=== PATIENT | female | born 1955 | race Caucasian/White ===

== ENCOUNTER → 2016-08-30 | Outpatient (REF) | payer OTHER ==
[~2016-08-30] MED LIST: ALBU17IN INH; ARIC10TA PO; ATOR1TAB21 PO; BENZ100C5 PO; BREO1INH IN; DONETAB6 PO; GABA600T PO; HYDR1TAB97 PO; HYDR25T PO; HYDR25TAB PO; INCR1INH IN; LOSA100T36 PO; MOBI15TA PO; OMEP40CA2 PO; SPIR1CAP INH; SUCR1SUS PO; SYMB16INH INH; TIOT18INH INH; TOPI1CAP PO; TOPI200T4 PO; TRAM50TA2 PO; TRAZ50TA4 PO
[2016-08-30 20:29] LABS: MEAN CORPUSCULAR HEMOGLOBIN 32.1 pg (27.0-33.0); MEAN CORPUSCULAR HGB CONC 33.2 g/dl (32.0-36.5); MEAN CORPUSCULAR VOLUME 96.7 fl (80.0-96.0); RED CELL DISTRIBUTION WIDTH 12.5 % (11.5-14.5); WHITE BLOOD COUNT 6.8 K/mm3 (4.0-10.0)
[2016-08-30 20:37] LABS: ALBUMIN/GLOBULIN RATIO 1.14 (1.00-1.93); ALKALINE PHOSPHATASE 94 U/L (45-117); ALT/SGPT 13 U/L (12-78); ANION GAP 9 MEQ/L (8-16); AST/SGOT 11 U/L (15-37); BILIRUBIN,TOTAL 0.4 MG/DL (0.2-1.0); BLOOD UREA NITROGEN 14 MG/DL (7-18); CALCIUM LEVEL 9.1 MG/DL (8.8-10.2); CARBON DIOXIDE LEVEL 26 MEQ/L (21-32); CHLORIDE LEVEL 108 MEQ/L (98-107); CHOLESTEROL LEVEL 200 MG/DL (<200); CREATININE FOR GFR 0.88 MG/DL (0.55-1.02); GLOMERULAR FILTRATION RATE > 60.0 (>45); GLUCOSE, FASTING 84 MG/DL (80-110); POTASSIUM SERUM 4.1 MEQ/L (3.5-5.1); SODIUM LEVEL 143 MEQ/L (136-145); TOTAL PROTEIN 7.5 GM/DL (6.4-8.2); TRIGLYCERIDES LEVEL 200 MG/DL (<150)
== END | disposition home or self-care (01) ==
LOC: M SFHCLERA 15:36
PROVIDERS: ATTEND Physician Assistant
DX: I10 Essential (primary) hypertension (principal); E78.2 Mixed hyperlipidemia

== ENCOUNTER → 2016-11-26 | Outpatient (REF) | payer OTHER ==
[~2016-11-26] MED LIST changes: +HYDR-3713 PO; -HYDR1TAB97 PO; -TOPI1CAP PO; +TOPI1CAP8 PO
[2016-11-26 12:37] LABS: ALBUMIN 3.5 GM/DL (3.2-5.2); ALBUMIN/GLOBULIN RATIO 0.97 (1.00-1.93); ALKALINE PHOSPHATASE 92 U/L (45-117); ALT/SGPT 14 U/L (12-78); ANION GAP 8 MEQ/L (8-16); AST/SGOT 12 U/L (15-37); BILIRUBIN,TOTAL 0.7 MG/DL (0.2-1.0); BLOOD UREA NITROGEN 15 MG/DL (7-18); CALCIUM LEVEL 9.1 MG/DL (8.8-10.2); CARBON DIOXIDE LEVEL 26 MEQ/L (21-32); CHLORIDE LEVEL 108 MEQ/L (98-107); CREATININE FOR GFR 0.81 MG/DL (0.55-1.02); FREE T4 1.06 NG/DL (0.76-1.46); GAMMA GLUTAMYLTRANSPEPTIDASE 35 U/L (5-55); GLOMERULAR FILTRATION RATE > 60.0 (>45); GLUCOSE, FASTING 90 MG/DL (80-110); POTASSIUM SERUM 3.6 MEQ/L (3.5-5.1); SODIUM LEVEL 142 MEQ/L (136-145); TOTAL PROTEIN 7.1 GM/DL (6.4-8.2)
[2016-11-26 12:53] LABS: MEAN CORPUSCULAR HEMOGLOBIN 32.6 pg (27.0-33.0); MEAN CORPUSCULAR HGB CONC 33.1 g/dl (32.0-36.5); MEAN CORPUSCULAR VOLUME 98.5 fl (80.0-96.0); RED CELL DISTRIBUTION WIDTH 13.4 % (11.5-14.5); WHITE BLOOD COUNT 10.4 K/mm3 (4.0-10.0)
== END ==
LOC: M SFHCLERA 08:24
PROVIDERS: ATTEND Physician Assistant
DX: L29.9 Pruritus, unspecified (principal)

== ENCOUNTER → 2016-11-26 | Outpatient (CLI) | payer OTHER ==
--- NOTE | 2016-11-26 10:10 | REP ---
CHEST, TWO VIEWS: COMPARISON: 11/11/2014. Moderate diffuse interstitial fibrosis is stable. There are emphysematous changes in the right upper lobe with thick focal scarring in the medial aspect of the right apex. A thick band of scarring is seen in the left upper lobe. Heart does not appear to be significantly enlarged. There is mild calcification of the thoracic aorta. There are mild degenerative changes of the spine. Metallic clips are seen in the right upper quadrant of the abdomen. IMPRESSION: Stable chronic fibrosis with no definite superimposed acute infiltrate. Signed by Brandt Garcia MD 11/26/2016 04:36 P
--- NOTE | 2016-11-26 14:15 | REP ---
RIGHT UPPER QUADRANT ULTRASOUND: Real-time sonographic evaluation of the right upper quadrant is performed. The patient has had a prior cholecystectomy. The common bile duct measures 10 mm maximally. No gross liver or pancreatic mass is seen. The pancreas is not optimally seen due to body habitus and bowel gas. The right kidney demonstrates no hydronephrosis with a length of 11.5 cm . There are two right renal cysts present measuring 3.1 x 3.8 x 2.7 cm and 1.8 x 2.3 x 2.3 cm. There is no free fluid. IMPRESSION: Status post cholecystectomy. The common bile duct 10 mm. Right renal cysts. Signed by Brandt Garcia MD 11/26/2016 04:40 P
== END ==
LOC: M LRY 08:28
PROVIDERS: ATTEND Physician Assistant
DX: L29.9 Pruritus, unspecified (principal); Z90.49 Acquired absence of other specified parts of digestive tract; N28.1 Cyst of kidney, acquired; J84.10 Pulmonary fibrosis, unspecified

== ENCOUNTER → 2017-01-28 | Outpatient (REF) | payer OTHER | LOC: M SFHCLERA 13:46 | PROVIDERS: ATTEND Physician Assistant | DX: R35.0 Frequency of micturition (principal) ==

== ENCOUNTER → 2024-03-19 | Outpatient (CLI) | payer MEDICARE, OTHER ==
[~2024-03-19] MED LIST changes: -ARIC10TA PO; +ARIC1TAB2 PO; +BENZ-18 PO; -BENZ100C5 PO; +DONE-1 PO; -DONETAB6 PO; -GABA600T PO; +GABA600T4 PO; +HYDR-2541 PO; +HYDR-3363 PO; -HYDR25T PO; -HYDR25TAB PO; -LOSA100T36 PO; +LOSA100T46 PO; -OMEP40CA2 PO; +OMEP40CA4 PO; +SUCR1ORA PO; -SUCR1SUS PO; -TOPI200T4 PO; +TOPI200T7 PO; +TRAZ-252 PO; -TRAZ50TA4 PO
== END ==
LOC: M RAD 14:43
PROVIDERS: ATTEND Nurse Practitioner Adult Health
DX: J44.9 Chronic obstructive pulmonary disease, unspecified (principal); R91.8 Other nonspecific abnormal finding of lung field

== ENCOUNTER → 2024-04-12 | Outpatient (CLI) | payer MEDICARE, MEDICAID ==
[~2024-04-12] MED LIST changes: +ALBU8.5H; +FLUT1BLS8; +GABA-284 PO
== END ==
LOC: M RAD 17:41
PROVIDERS: ATTEND Nurse Practitioner Adult Health
DX: R91.8 Other nonspecific abnormal finding of lung field (principal)

== ENCOUNTER → 2024-04-14 | Day surgery (SDC) | payer MEDICARE, MEDICAID ==
[~2024-04-14] VITALS: Ht 154.9 cm; Wt 59.5 kg
[~2024-04-14] MED LIST changes: +ATROPINE SULFATE 1% OPHTH SOLN 2ML BTL OS SCH; +BSS IRRIG/VANCO(10MG)/TOBRA(5MG)/EPINEPH(1:1000-0.5CC)500ML BAG-ORONLY As Ordered ONE; +CEFUROXIME 1MG/0.1ML INTRACAMERAL INJ As Ordered ONE; +CHLO125TA PO; +GABA-1490 PO; -GABA600T4 PO; +LIDOCAINE 1% SDV 5ML VIAL As Ordered ONE; +LIDOCAINE 3.5 % 1ML OPHTH TOPICAL GEL OU ONE; +MIDAZOLAM INJ 2MG/2ML VIAL As Ordered ONE; +OFLOXACIN 0.3 % (OCUFLOX) OPTH SOL 5ML OS ONE; +PHENYLEPHRINE 10% OPHTH SOL 5ML OS PRN; +PHENYLEPHRINE 2.5% OPHTH SOL 2ML OS SCH; +TROPICAMIDE 1% OPHTH SOLN 15ML OS SCH; +fentaNYL 100 MCG/2 ML INJECTION As Ordered ONE
[2024-04-14 11:33] VITALS: BP 148/79; TEMP 98.1; O2SAT 92
[2024-04-14] MEDS: ALBUTEROL SULFATE 2.5MG/0.5ML INH NEB SOLN NEB ONE (11:36)
== END | disposition home or self-care (01) ==
LOC: M SDC 10:55
PROVIDERS: ATTEND Ophthalmology
DX: H25.12 Age-related nuclear cataract, left eye (principal); R09.02 Hypoxemia; Z53.09 Procedure and treatment not carried out because of other contraindication; R60.0 Localized edema; J44.9 Chronic obstructive pulmonary disease, unspecified; R06.02 Shortness of breath; R91.8 Other nonspecific abnormal finding of lung field; F31.9 Bipolar disorder, unspecified; I10 Essential (primary) hypertension; M19.90 Unspecified osteoarthritis, unspecified site; M79.7 Fibromyalgia; K21.9 Gastro-esophageal reflux disease without esophagitis; E78.5 Hyperlipidemia, unspecified; Z88.0 Allergy status to penicillin; Z88.5 Allergy status to narcotic agent; Z88.8 Allergy status to other drugs, medicaments and biological substances; Z90.49 Acquired absence of other specified parts of digestive tract; Z90.89 Acquired absence of other organs; Z98.61 Coronary angioplasty status

== ENCOUNTER → 2024-05-11 | Outpatient (CLI) | payer MEDICARE, MEDICAID ==
[~2024-05-11] MED LIST changes: -ATROPINE SULFATE 1% OPHTH SOLN 2ML BTL OS SCH; -BSS IRRIG/VANCO(10MG)/TOBRA(5MG)/EPINEPH(1:1000-0.5CC)500ML BAG-ORONLY As Ordered ONE; -CEFUROXIME 1MG/0.1ML INTRACAMERAL INJ As Ordered ONE; -LIDOCAINE 1% SDV 5ML VIAL As Ordered ONE; -LIDOCAINE 3.5 % 1ML OPHTH TOPICAL GEL OU ONE; -MIDAZOLAM INJ 2MG/2ML VIAL As Ordered ONE; -OFLOXACIN 0.3 % (OCUFLOX) OPTH SOL 5ML OS ONE; -PHENYLEPHRINE 10% OPHTH SOL 5ML OS PRN; -PHENYLEPHRINE 2.5% OPHTH SOL 2ML OS SCH; -TROPICAMIDE 1% OPHTH SOLN 15ML OS SCH; -fentaNYL 100 MCG/2 ML INJECTION As Ordered ONE
== END ==
LOC: M PLARAD 11:51
PROVIDERS: ATTEND Internal Medicine Critical Care Medicine
DX: R91.8 Other nonspecific abnormal finding of lung field (principal)
CPT/HCPCS: 78815; A9552

== ENCOUNTER → 2024-05-25 | Outpatient (REF) | payer MEDICARE, MEDICAID ==
[2024-05-25 17:28] LABS: PLATELET COUNT, AUTOMATED 222 10^3/uL (150-450)
[2024-05-25 17:57] LABS: ALBUMIN 3.2 G/DL (3.2-5.2); ALKALINE PHOSPHATASE 74 U/L (46-116); ALT/SGPT 13 U/L (7.0-40); AST/SGOT 14 U/L (<34); BILIRUBIN,TOTAL 0.3 MG/DL (0.3-1.2); BLOOD UREA NITROGEN 7 MG/DL (9-23); CALCIUM LEVEL 9.3 MG/DL (8.3-10.6); CARBON DIOXIDE LEVEL 33 MMOL/L (20-31); CHLORIDE LEVEL 104 MMOL/L (98-107); CREATININE FOR GFR 0.72 MG/DL (0.55-1.30); GLOMERULAR FILTRATION RATE > 60.0 (>45); GLUCOSE, FASTING 70 MG/DL (74-106); MAGNESIUM LEVEL 1.8 MG/DL (1.8-2.4); POTASSIUM SERUM 4.7 MMOL/L (3.5-5.1); SODIUM LEVEL 140 MMOL/L (136-145); TOTAL PROTEIN 6.3 G/DL (5.7-8.2)
== END ==
LOC: M LAB REF 17:17
PROVIDERS: ATTEND Internal Medicine Critical Care Medicine
DX: R06.00 Dyspnea, unspecified (principal); R91.8 Other nonspecific abnormal finding of lung field

== ENCOUNTER → 2024-06-28 | Outpatient (CLI) | payer MEDICARE, MEDICAID ==
[~2024-06-28] MED LIST changes: +KETOROLAC 30 MG/ML 1ML VIAL As Ordered ONE; +LIDOCAINE 1% MDV 20ML VIAL As Ordered ONE; +MIDAZOLAM INJ 2MG/2ML VIAL As Ordered ONE; +NS 1,000 ML IV SCH; +fentaNYL 100 MCG/2 ML INJECTION As Ordered ONE
[2024-06-28 07:10] VITALS: TEMP 97.7
[2024-06-28] MEDS: KETOROLAC 30 MG/ML 1ML VIAL IV ONE (10:35)
[2024-06-28 11:15] VITALS: BP 173/74; O2SAT 98
== END ==
LOC: M IRPRO 06:48
PROVIDERS: ATTEND Internal Medicine Critical Care Medicine
DX: R91.8 Other nonspecific abnormal finding of lung field (principal)
CPT/HCPCS: 32408; 88305; 99152; 99153; J1885; J2250; J3010

== ENCOUNTER → 2024-09-03 | Outpatient (CLI) | payer MEDICARE ==
[~2024-09-03] MED LIST changes: -KETOROLAC 30 MG/ML 1ML VIAL As Ordered ONE; -LIDOCAINE 1% MDV 20ML VIAL As Ordered ONE; -MIDAZOLAM INJ 2MG/2ML VIAL As Ordered ONE; -NS 1,000 ML IV SCH; -fentaNYL 100 MCG/2 ML INJECTION As Ordered ONE
== END ==
LOC: M RAD 16:45
PROVIDERS: ATTEND Internal Medicine Critical Care Medicine
DX: R91.1 Solitary pulmonary nodule (principal); R91.8 Other nonspecific abnormal finding of lung field

== ENCOUNTER → 2024-11-03 | Outpatient (CLI) | payer MEDICARE, OTHER ==
[2024-11-03 17:53] LABS: BASO % 0.4 % (0.0-1.0); EOS % 0.3 % (0.0-3.0); HEMATOCRIT 40.1 % (36.0-47.0); HEMOGLOBIN 12.6 g/dl (12.0-15.5); LYMPH # 1.2 10^3/uL (1.5-5.0); LYMPH % 18.6 % (24.0-44.0); MEAN CORPUSCULAR HGB CONC 31.4 g/dl (32.0-36.5); MEAN CORPUSCULAR VOLUME 98.8 fl (80.0-96.0); MONO # 0.4 10^3/uL (0.0-0.8); MONO % 5.2 % (2.0-8.0); NEUTROPHILS % 74.6 % (36.0-66.0); PLATELET COUNT, AUTOMATED 223 10^3/uL (150-450); RED BLOOD COUNT 4.06 10^6/uL (4.00-5.40); WHITE BLOOD COUNT 6.7 10^3/uL (4.0-10.0)
[2024-11-03 17:57] LABS: PERCENT SATURATION 6.4 % (13.2-45.0)
[2024-11-03 18:01] LABS: FERRITIN 41.9 NG/ML (7.3-270.7); THYROID STIMULATING HORMONE 1.026 uIU/ML (0.55-4.78)
[2024-11-03 18:02] LABS: TOTAL 25(OH) VITAMIN D 11.4 NG/ML (20.0-100.0)
[2024-11-03 18:03] LABS: HEMOGLOBIN A1c 5.3 % (4.0-6.0)
== END ==
LOC: M WUC 15:08
DX: R60.0 Localized edema (principal); J44.9 Chronic obstructive pulmonary disease, unspecified; E78.2 Mixed hyperlipidemia; I10 Essential (primary) hypertension; D50.9 Iron deficiency anemia, unspecified

== ENCOUNTER 2025-06-08 19:35 | Inpatient (IN) | payer MEDICAID, MEDICARE ==
[~2025-06-08] VITALS: Ht 154.9 cm; Wt 63.0 kg
[~2025-06-08 19:35] MED LIST changes: -ALBU8.5H; +ALBU8.5H INH; +TOPI-14 PO; -TOPI200T7 PO
[2025-06-08] MEDS: IPRATROPIUM 0.5 MG/ALBUTEROL 2.5 MG INH SOL UD 3 ML NEB ONE (20:05)
[2025-06-08 20:22] LABS: VENOUS BASE EXCESS 2.5 (-2.0-2.0); VENOUS HCO3 27.7 MMOL/L (23.0-27.0); VENOUS O2 SATURATION 96.0 % (60.0-80.0); VENOUS PARTIAL PRESSURE CO2 44.9 mmHg (38.0-50.0); VENOUS PARTIAL PRESSURE O2 82.2 mmHg (30.0-50.0); VENOUS PH 7.408 UNITS (7.330-7.430); VENOUS STANDARD HCO3 26.7 MMOL/L; VENOUS TOTAL CO2 29.1 MMOL/L (24.0-28.0)
[2025-06-08 20:24] LABS: BASO # 0.1 10^3/uL (0.0-0.2); BASO % 1.0 % (0.0-1.0); EOS # 0.3 10^3/uL (0.0-0.5); EOS % 4.9 % (0.0-3.0); LYMPH # 1.7 10^3/uL (1.5-5.0); LYMPH % 25.3 % (24.0-44.0); MONO # 0.5 10^3/uL (0.0-0.8); MONO % 7.9 % (2.0-8.0); NEUTROPHILS # 4.1 10^3/uL (1.5-8.5); NEUTROPHILS % 60.8 % (36.0-66.0); PLATELET COUNT, AUTOMATED 231 10^3/uL (150-450)
[2025-06-08 20:49] LABS: CK-MB VALUE MASS 3.5 NG/ML (<3.6)
[2025-06-08 20:51] LABS: ALT/SGPT 14 U/L (7.0-40); AST/SGOT 28 U/L (<34); CALCIUM LEVEL 9.4 MG/DL (8.3-10.6); CARBON DIOXIDE LEVEL 27 MMOL/L (20-31); CHLORIDE LEVEL 102 MMOL/L (98-107); CREATININE FOR GFR 0.58 MG/DL (0.55-1.30); GLOMERULAR FILTRATION RATE > 90.0 (>45); POTASSIUM SERUM 4.1 MMOL/L (3.5-5.1); SODIUM LEVEL 142 MMOL/L (136-145)
[2025-06-08 20:52] LABS: FREE T4 1.14 NG/DL (0.89-1.76)
[2025-06-08 20:57] LABS: CPK CREATINE PHOSPHOKINASE 93 U/L (34-145); MB/CK RELATIVE INDEX 3.76 (< OR =4)
[2025-06-08] MEDS: DOXYCYCLINE HYCLATE 100 MG TABLET PO SCH (21:00)
[2025-06-08] MEDS: SUCRALFATE 1 GM TAB PO SCH (21:00)
[2025-06-08] MEDS: IPRATROPIUM 0.5 MG/ALBUTEROL 2.5 MG INH SOL UD 3 ML NEB PRN (21:24)
[2025-06-08 21:46] LABS: CK-MB VALUE MASS 2.6 NG/ML (<3.6)
[2025-06-08] MEDS ORDERED: ISOVUE-370 76% 100 ML VIAL As Ordered ONE (22:06)
[2025-06-08 22:17] LABS: CPK CREATINE PHOSPHOKINASE 85.0 U/L (34-145); MB/CK RELATIVE INDEX 3.05 (< OR =4)
[2025-06-08] MEDS ORDERED: MOM 30 ML SUSPENSION UDC PO PRN (23:35)
[2025-06-08] MEDS ORDERED: MAALOX 30 ML SUSP *UDC PO PRN (23:35)
[2025-06-08] MEDS ORDERED: ENSI3AMP INH (23:37)
[2025-06-08] MEDS ORDERED: DONE10TA90 PO (23:37)
[2025-06-08] MEDS ORDERED: SUCR1TAB56 PO (23:37)
[2025-06-08] MEDS ORDERED: BUDE10.7 INH (23:37)
[2025-06-08] MEDS ORDERED: D32000TA2 PO (23:37)
[2025-06-08] MEDS ORDERED: AZIT-12 PO (23:40)
[2025-06-08] MEDS ORDERED: HOME MED LIST COMPLETE! XX SCH (23:45)
[2025-06-09] MEDS ORDERED: ALBUTEROL SULFATE 2.5 MG/0.5 ML INH CONCENTRATE NEB SOLN NEB PRN (00:10)
[2025-06-09] MEDS: LR 1,000 ML IV SCH (00:44)
[2025-06-09] MEDS: SODIUM CHLORIDE HYPERTONIC 3% 4ML NEB SOL INH SCH (03:29)
[2025-06-09] MEDS: IPRATROPIUM 0.5 MG/ALBUTEROL 2.5 MG INH SOL UD 3 ML NEB SCH (03:29)
[2025-06-09 06:58] LABS: VENOUS BASE EXCESS 0.4 (-2.0-2.0); VENOUS HCO3 26.1 MMOL/L (23.0-27.0); VENOUS O2 SATURATION 99.4 % (60.0-80.0); VENOUS PARTIAL PRESSURE CO2 45.9 mmHg (38.0-50.0); VENOUS PARTIAL PRESSURE O2 216.7 mmHg (30.0-50.0); VENOUS PH 7.372 UNITS (7.330-7.430); VENOUS STANDARD HCO3 24.9 MMOL/L; VENOUS TOTAL CO2 27.5 MMOL/L (24.0-28.0)
[2025-06-09 07:05] LABS: BASO # 0.0 10^3/uL (0.0-0.2); BASO % 0.5 % (0.0-1.0); EOS # 0.0 10^3/uL (0.0-0.5); EOS % 0.0 % (0.0-3.0); LYMPH # 0.4 10^3/uL (1.5-5.0); LYMPH % 11.5 % (24.0-44.0); MONO # 0.1 10^3/uL (0.0-0.8); MONO % 3.6 % (2.0-8.0); NEUTROPHILS # 3.1 10^3/uL (1.5-8.5); NEUTROPHILS % 84.1 % (36.0-66.0); PLATELET COUNT, AUTOMATED 201 10^3/uL (150-450)
[2025-06-09 07:39] LABS: CALCIUM LEVEL 9.0 MG/DL (8.3-10.6); CARBON DIOXIDE LEVEL 29 MMOL/L (20-31); CHLORIDE LEVEL 103 MMOL/L (98-107); CREATININE FOR GFR 0.67 MG/DL (0.55-1.30); GLOMERULAR FILTRATION RATE > 90.0 (>45); MAGNESIUM LEVEL 1.6 MG/DL (1.8-2.4); POTASSIUM SERUM 3.6 MMOL/L (3.5-5.1); SODIUM LEVEL 141 MMOL/L (136-145)
[2025-06-09] MEDS: BUDESONIDE 0.5 MG/2 ML INHALATION SUSPENSION NEB SCH (07:56)
[2025-06-09] MEDS: PANTOPRAZOLE 40MG VIAL IV SCH (08:22)
[2025-06-09] MEDS: LOSARTAN 50 MG TABLET PO SCH (08:23)
[2025-06-09] MEDS: DOCUSATE SODIUM 100 MG CAPSULE PO SCH (08:23)
[2025-06-09] MEDS: GABAPENTIN 400 MG CAP PO SCH (08:23)
[2025-06-09] MEDS: ATORVASTATIN 20 MG TAB PO SCH (08:23)
[2025-06-09] MEDS: ENOXAPARIN 40 MG/0.4 ML SYRINGE (J1650 PER 10MG) SC SCH (08:23)
[2025-06-09] MEDS ORDERED: predniSONE 20 MG TAB PO SCH (09:00)
[2025-06-09] MEDS ORDERED: AZITHROMYCIN 250 MG TABLET PO SCH (09:00)
[2025-06-09] MEDS: MAG SULF 1GM/100ML (MAG RUN) 1 GM in IV 1 EA IV SCH (10:50)
[2025-06-09 11:46] VITALS: O2SAT 93
[2025-06-09 15:15] VITALS: BP 170/84
[2025-06-09 15:28] VITALS: BP 160/98; TEMP 97.9; O2SAT 96
[2025-06-09 19:38] VITALS: BP 135/71; TEMP 97.6; O2SAT 94
[2025-06-09 23:35] VITALS: BP 127/59; TEMP 97.1; O2SAT 90
[2025-06-10 04:16] VITALS: BP 112/57; TEMP 97.5; O2SAT 95
[2025-06-10 06:58] LABS: BASO # 0.0 10^3/uL (0.0-0.2); BASO % 0.6 % (0.0-1.0); EOS # 0.1 10^3/uL (0.0-0.5); EOS % 1.8 % (0.0-3.0); LYMPH # 1.8 10^3/uL (1.5-5.0); LYMPH % 28.9 % (24.0-44.0); MONO # 0.6 10^3/uL (0.0-0.8); MONO % 10.0 % (2.0-8.0); NEUTROPHILS # 3.6 10^3/uL (1.5-8.5); NEUTROPHILS % 58.4 % (36.0-66.0); PLATELET COUNT, AUTOMATED 210 10^3/uL (150-450)
[2025-06-10 07:22] LABS: CALCIUM LEVEL 8.8 MG/DL (8.3-10.6); CARBON DIOXIDE LEVEL 32 MMOL/L (20-31); CHLORIDE LEVEL 103 MMOL/L (98-107); CREATININE FOR GFR 0.65 MG/DL (0.55-1.30); GLOMERULAR FILTRATION RATE > 90.0 (>45); MAGNESIUM LEVEL 1.9 MG/DL (1.8-2.4); POTASSIUM SERUM 3.7 MMOL/L (3.5-5.1); SODIUM LEVEL 145 MMOL/L (136-145)
[2025-06-10 07:33] VITALS: BP 134/72; TEMP 98.2; O2SAT 98
[2025-06-10] MEDS: DONEPEZIL 5 MG TAB PO SCH (08:26)
[2025-06-10 11:30] VITALS: BP 140/67; TEMP 97.8; O2SAT 93
[2025-06-10] MEDS: LIDOCAINE 5% PATCH TD ONE (13:21)
[2025-06-10] MEDS: FLUZONE HIGH DOSE (65+) 0.5 ML SYRINGE (25-26) IM.IMMUN ONE (13:22)
[2025-06-10] MEDS: PNEUMOC 21-VAL CONJ-DIP CRM/PF 0.5 ML SYRINGE IM.IMMUN ONE (13:23)
[2025-06-10 16:16] VITALS: BP 129/62; TEMP 97.7; O2SAT 95
[2025-06-10] MEDS: IPRATROPIUM 0.5 MG/ALBUTEROL 2.5 MG INH SOL UD 3 ML NEB PRN (20:06)
[2025-06-10] MEDS: KETOROLAC 30 MG/ML 1 ML VIAL IV ONE (20:21)
[2025-06-11 00:13] VITALS: BP 120/56; TEMP 97.3; O2SAT 95
[2025-06-11 04:28] VITALS: BP 122/58; TEMP 97.2; O2SAT 95
[2025-06-11 06:26] VITALS: BP 126/81; TEMP 98.1; O2SAT 96
[2025-06-11 06:41] LABS: CALCIUM LEVEL 8.6 MG/DL (8.3-10.6); CARBON DIOXIDE LEVEL 32.0 MMOL/L (20-31); CHLORIDE LEVEL 102.0 MMOL/L (98-107); CREATININE FOR GFR 0.87 MG/DL (0.55-1.30); GLOMERULAR FILTRATION RATE 72.1 (>45); MAGNESIUM LEVEL 1.7 MG/DL (1.8-2.4); POTASSIUM SERUM 3.7 MMOL/L (3.5-5.1); SODIUM LEVEL 143.0 MMOL/L (136-145)
[2025-06-11] MEDS: predniSONE 20 MG TAB PO SCH (08:36)
[2025-06-11] MEDS: MAG SULF 1GM/100ML (MAG RUN) 1 GM in IV 1 EA IV ONE (08:39)
[2025-06-11] MEDS: NICOTINE 14 MG/24 HR TRANSDERMAL TD SCH (09:00)
[2025-06-11] MEDS: LIDOCAINE 5% PATCH TD SCH (09:00)
[2025-06-11] MEDS ORDERED: LIDOCAINE 5% PATCH TD SCH (10:40)
[2025-06-11] MEDS ORDERED: MORPHINE 4 MG/ML 1 ML VIAL IV PRN (10:40)
[2025-06-11] MEDS: IPRATROPIUM 0.5 MG/ALBUTEROL 2.5 MG INH SOL UD 3 ML NEB SCH (11:24)
[2025-06-11] MEDS: MORPHINE 4 MG/ML 1 ML VIAL IV PRN (11:49)
[2025-06-11 12:00] VITALS: BP 138/73; TEMP 98.1; O2SAT 97
[2025-06-11 20:24] VITALS: BP 142/74; TEMP 98.1; O2SAT 91
[2025-06-12 04:26] VITALS: BP 153/82; TEMP 97.9; O2SAT 92
[2025-06-12 06:56] LABS: CALCIUM LEVEL 8.6 MG/DL (8.3-10.6); CARBON DIOXIDE LEVEL 31 MMOL/L (20-31); CHLORIDE LEVEL 102 MMOL/L (98-107); CREATININE FOR GFR 0.65 MG/DL (0.55-1.30); GLOMERULAR FILTRATION RATE > 90.0 (>45); MAGNESIUM LEVEL 1.8 MG/DL (1.8-2.4); POTASSIUM SERUM 3.8 MMOL/L (3.5-5.1); SODIUM LEVEL 142 MMOL/L (136-145)
[2025-06-12] MEDS ORDERED: PILL CUTTER 1 EACH XX PRN (09:55)
[2025-06-12 12:00] VITALS: BP 141/72; TEMP 97.4; O2SAT 100
[2025-06-12 19:10] VITALS: O2SAT 96
[2025-06-12] MEDS: ALBUTEROL SULFATE 2.5 MG/0.5 ML INH CONCENTRATE NEB SOLN NEB PRN (19:10)
[2025-06-12 21:28] VITALS: BP 141/56; TEMP 98.6; O2SAT 95
[2025-06-13 02:55] VITALS: O2SAT 91
[2025-06-13 06:50] LABS: CALCIUM LEVEL 8.4 MG/DL (8.3-10.6); CARBON DIOXIDE LEVEL 31 MMOL/L (20-31); CHLORIDE LEVEL 104 MMOL/L (98-107); CREATININE FOR GFR 0.63 MG/DL (0.55-1.30); GLOMERULAR FILTRATION RATE > 90.0 (>45); MAGNESIUM LEVEL 1.6 MG/DL (1.8-2.4); POTASSIUM SERUM 3.8 MMOL/L (3.5-5.1); SODIUM LEVEL 144 MMOL/L (136-145)
[2025-06-13 09:17] LABS: VENOUS BASE EXCESS 4.1 (-2.0-2.0); VENOUS HCO3 31.8 MMOL/L (23.0-27.0); VENOUS O2 SATURATION 83.0 % (60.0-80.0); VENOUS PARTIAL PRESSURE CO2 62.4 mmHg (38.0-50.0); VENOUS PARTIAL PRESSURE O2 45.1 mmHg (30.0-50.0); VENOUS PH 7.325 UNITS (7.330-7.430); VENOUS STANDARD HCO3 27.8 MMOL/L; VENOUS TOTAL CO2 33.7 MMOL/L (24.0-28.0)
[2025-06-13] MEDS: MAG SULF 1GM/100ML (MAG RUN) 1 GM in IV 1 EA IV SCH (09:43)
[2025-06-13] MEDS: IPRATROPIUM 0.5 MG/ALBUTEROL 2.5 MG INH SOL UD 3 ML NEB ONE (10:09)
[2025-06-13 13:01] VITALS: BP 164/88; TEMP 99.5; O2SAT 86
[2025-06-13 20:21] VITALS: BP 151/82; TEMP 97.9; O2SAT 93
[2025-06-14 03:27] VITALS: BP 139/58; TEMP 97.7; O2SAT 92
[2025-06-14 08:01] LABS: BASO # 0.0 10^3/uL (0.0-0.2); BASO % 0.2 % (0.0-1.0); EOS # 0.0 10^3/uL (0.0-0.5); EOS % 0.4 % (0.0-3.0); LYMPH # 0.6 10^3/uL (1.5-5.0); LYMPH % 7.1 % (24.0-44.0); MONO # 0.6 10^3/uL (0.0-0.8); MONO % 7.6 % (2.0-8.0); NEUTROPHILS # 6.9 10^3/uL (1.5-8.5); NEUTROPHILS % 84.2 % (36.0-66.0); PLATELET COUNT, AUTOMATED 185 10^3/uL (150-450)
[2025-06-14 08:48] LABS: CALCIUM LEVEL 8.9 MG/DL (8.3-10.6); CARBON DIOXIDE LEVEL 31 MMOL/L (20-31); CHLORIDE LEVEL 102 MMOL/L (98-107); CREATININE FOR GFR 0.63 MG/DL (0.55-1.30); GLOMERULAR FILTRATION RATE > 90.0 (>45); MAGNESIUM LEVEL 1.9 MG/DL (1.8-2.4); POTASSIUM SERUM 4.8 MMOL/L (3.5-5.1); SODIUM LEVEL 143 MMOL/L (136-145)
[2025-06-14 10:46] VITALS: BP 155/68
[2025-06-14] MEDS: FUROSEMIDE 40 MG/4 ML VIAL IV ONE (10:46)
[2025-06-14] MEDS ORDERED: PRED10TA2 PO (11:39)
[2025-06-14 12:00] VITALS: BP 156/69; TEMP 97.5; O2SAT 98
[2025-06-14] MEDS ORDERED: OXYC-517 PO (13:35)
[2025-06-14] MEDS ORDERED: FURO20TA2 PO (13:51)
== END 2025-06-14 15:22 | disposition home health service (06) | DRG 189 ==
LOC: M ED 19:35 → M ED INP 23:31 → M PCU 06-09 14:40 → M MSPAV 06-11 06:21
PROVIDERS: ADMIT Student in an Organized Health Care Education/Training Program; ATTEND Student in an Organized Health Care Education/Training Program
DX: J96.21 Acute and chronic respiratory failure with hypoxia (principal); J44.1 Chronic obstructive pulmonary disease with (acute) exacerbation; M48.54XA Collapsed vertebra, not elsewhere classified, thoracic region, initial encounter for fracture; I10 Essential (primary) hypertension; E78.5 Hyperlipidemia, unspecified; K21.9 Gastro-esophageal reflux disease without esophagitis; G89.29 Other chronic pain; M54.50 Low back pain, unspecified; M81.0 Age-related osteoporosis without current pathological fracture; J43.9 Emphysema, unspecified; F17.290 Nicotine dependence, other tobacco product, uncomplicated; U07.0 Vaping-related disorder; G62.9 Polyneuropathy, unspecified; F03.90 Unspecified dementia, unspecified severity, without behavioral disturbance, psychotic disturbance, mood disturbance, and anxiety; Z99.81 Dependence on supplemental oxygen; Z79.899 Other long term (current) drug therapy; Z88.0 Allergy status to penicillin; Z88.5 Allergy status to narcotic agent; Z88.6 Allergy status to analgesic agent

== ENCOUNTER → 2025-06-27 | Outpatient (CLI) | payer MEDICARE ==
[~2025-06-27] MED LIST changes: +AZIT-12 PO; +BUDE10.7 INH; +D32000TA2 PO; +DONE10TA90 PO; +ENSI3AMP INH; +FURO20TA2 PO; +OXYC-517 PO; +PRED10TA2 PO; +SUCR1TAB56 PO
== END ==
LOC: M RAD 08:37
PROVIDERS: ATTEND Internal Medicine
DX: R60.1 Generalized edema (principal)

== ENCOUNTER → 2025-07-14 | Outpatient (CLI) | payer MEDICARE | LOC: M RAD 10:30 | PROVIDERS: ATTEND Physician Assistant | DX: S22.050A Wedge compression fracture of T5-T6 vertebra, initial encounter for closed fracture (principal); W18.30XA Fall on same level, unspecified, initial encounter; Y92.009 Unspecified place in unspecified non-institutional (private) residence as the place of occurrence of the external cause ==

== ENCOUNTER → 2025-08-09 | Outpatient (REF) | payer MEDICARE, OTHER ==
[2025-08-09 17:42] LABS: BASO # 0.1 10^3/uL (0.0-0.2); BASO % 1.0 % (0.0-1.0); EOS # 0.2 10^3/uL (0.0-0.5); EOS % 4.6 % (0.0-3.0); LYMPH # 1.1 10^3/uL (1.5-5.0); LYMPH % 22.6 % (24.0-44.0); MONO # 0.4 10^3/uL (0.0-0.8); MONO % 8.4 % (2.0-8.0); NEUTROPHILS # 3.0 10^3/uL (1.5-8.5); NEUTROPHILS % 63.4 % (36.0-66.0); PLATELET COUNT, AUTOMATED 173 10^3/uL (150-450)
[2025-08-09 17:45] LABS: CALCIUM LEVEL 8.8 MG/DL (8.3-10.6); CARBON DIOXIDE LEVEL 37 MMOL/L (20-31); CHLORIDE LEVEL 97 MMOL/L (98-107); CREATININE FOR GFR 0.64 MG/DL (0.55-1.30); GLOMERULAR FILTRATION RATE > 90.0 (>45); POTASSIUM SERUM 3.7 MMOL/L (3.5-5.1); SODIUM LEVEL 141 MMOL/L (136-145)
[2025-08-09 18:10] LABS: CREATININE, URINE 16.2 MG/DL; MALB URINE SIEMENS < 3.0 MG/L
== END ==
LOC: M SFHCLERA 13:05
PROVIDERS: ATTEND Internal Medicine
DX: R60.0 Localized edema (principal); R06.02 Shortness of breath